=== PATIENT | female | born 1945 | race Caucasian/White ===

== ENCOUNTER 2017-03-14 17:54 | Emergency (ER) | payer MEDICARE ==
--- NOTE | 2017-03-14 18:15 | Emergency Department Record ---
History of Present Illness - General Source: Patient, Family Mode of Arrival: Wheelchair Limitations: No limitations - History of Present Illness Initial Comments: 71 yo female presents after a fall down 3 steps about 2 hours ago. She presents with pain in the ribs and side on the right. She did not hit her head. No neck pain. No extremity injury. Her pain is along the right side on the ribs to the right flank. No lacerations or abrasions. No pain of the spine. No hip or lower extremity pain. MD Complaint: Fall Onset/Timin -: Hour(s) Fall From: Down stairs (#) When Fall Occurred: 1-3 hours [employer] Fall Witnessed: No Place Fall Occurred: Home Loss of Consciousness: None Prolonged Down Time?: No Symptoms Prior to Fall: None Severity scale (1-10): 10 Quality: Aching, Burning, Sharp, Stabbing Context: Tripped/slipped Associated Symptoms: Denies - [place] Coma Scale Eye Response: (4) Open spontaneously <ORAL CARY - Last Filed: 03/14/17 18:53> <ELENA MONROE - Last Filed: 03/14/17 20:28> - General Chief Complaint: Fall Injury Stated Complaint: FALL Time Seen by Provider: 03/14/17 18:09 - Related Data Home Medications Medication Instructions Recorded Confirmed Last Taken Multivitamin [Multi-Vitamin Daily] 1 each PO DAILY 02/01/15 03/14/17 09/11/15 Previous Rx's Medication Instructions Recorded Diazepam [Valium] 5 mg PO Q8H #20 tab 03/14/17 Hydrocodone/Acetaminophen [[place] 1 each PO Q8HR #20 tablet 03/14/17 5-325 Tablet] Allergies Allergy/AdvReac Type Severity Reaction Status Date / Time cephalexin monohydrate Allergy Intermediate stomach Unverified 11/04/16 15:08 [From Keflex] issues prochlorperazine edisylate Allergy Intermediate HYPERSENSIT Unverified 07/29/16 11:23 [From Compazine] IVITY prochlorperazine maleate Allergy Intermediate HYPERSENSIT Unverified 07/29/16 11 :23 [From Compazine] IVITY zonisamide Allergy Intermediate HIVES Unverified 03/11/17 13:42 Travel Screening - Travel/Exposure Within Last 30 Days Have you traveled within the last 30 days?: No <ORAL CARY - Last Filed: 03/14/17 18:53> Review of Systems Constitutional: Denies: Chills, Fever, Malaise, Weakness Eyes: Denies: Eye discharge ENT: Denies: Congestion, Throat pain Respiratory: Denies: Cough Cardiovascular: Denies: Chest pain, Palpitations, Syncope Endocrine: Denies: Fatigue Gastrointestinal: Denies: Abdominal pain, Diarrhea, Nausea, Vomiting Genitourinary: Denies: Dysuria, Urgency Musculoskeletal: Denies: Arthralgia, Back pain, Joint swelling, Myalgia Skin: Denies: Bruising, Change in color, Rash Neurological: Denies: Headache, Numbness, Weakness Psychiatric: Denies: Anxiety Hematological/Lymphatic: Denies: Blood Clots, Easy bleeding, Easy bruising, Swollen glands <ORAL CARY - Last Filed: 03/14/17 18:53> Past Medical History - SOCIAL HISTORY Smoking Status: Never smoker Alcohol Use: None Drug Use: None - RESPIRATORY Hx Respiratory Disorders: No - CARDIOVASCULAR Hx Cardio Disorders: Yes Hx Hypertension: Yes - NEURO Hx Neuro Disorders: Yes Hx Dizziness: Yes (migraines) - GI Hx GI Disorders: No Hx Abdominal Pain: Yes - Hx Genitourinary Disorders: No - ENDOCRINE Hx Endocrine Disorders: No - MUSCULOSKELETAL Hx Musculoskeletal Disorders: Yes - PSYCH Hx Psych Problems: Yes Hx Anxiety: Yes - HEMATOLOGY/ONCOLOGY Hx Hematology/Oncology Disorders: No <ORAL CARY - Last Filed: 03/14/17 18:53> Family Medical History Any Significant Family History?: Yes Hx Cancer: Father, Mother Hx Heart Disease: Grandparents <ORAL CARY - Last Filed: 03/14/17 18:53> Physical Exam - General General Appearance: Alert, Oriented x3, Cooperative, No acute distress Limitations: No limitations - Head Head exam: Atraumatic, Normocephalic, Normal inspection - Eye Eye exam: Normal appearance, PERRL. negative: Conjunctival injection, Periorbital swelling - ENT ENT exam: Normal exam, Mucous membranes moist Ear exam: Normal external inspection Nasal Exam: Normal inspection Mouth exam: Normal external inspection Teeth exam: Normal inspection Throat exam: Normal inspection - Neck Neck exam: Normal inspection, Full ROM. negative: Tenderness - Respiratory Respiratory exam: Normal lung sounds bilaterally. negative: Respiratory distress, Rhonchi, Stridor, Wheezes - Cardiovascular Cardiovascular Exam: Regular rate, Normal rhythm, Normal heart sounds - GI/Abdominal GI/Abdominal exam: Soft. negative: Guarding, Tenderness - Rectal Rectal exam: Deferred - exam: Deferred - Extremities Extremities exam: Normal inspection, Normal capillary refill, Tenderness. negative: Calf tenderness, Full ROM, Pedal edema Image of Full Body: 1 - tender mid lateral chest wall to lower right flank, normal inspection 2 - tender - Back Back exam: Reports: CVA tenderness (R) (tender along the right CVA area). Denies: Full ROM, Paraspinal tenderness, Tenderness, Vertebral tenderness - Neurological Neurological exam: Alert, Normal gait, Oriented X3, Reflexes normal - Psychiatric Psychiatric exam: Normal affect, Normal mood. negative: Agitated, Anxious - Skin Skin exam: Dry, Intact, Normal color, Warm <ORAL CARY - Last Filed: 03/14/17 18:53> Course Vital Signs 03/14/17 17:57 Temperature 98.6 F Pulse Rate 70 Respiratory 20 Rate Blood Pressure 152/98 Pulse Ox 97 - Reevaluation(s) Reevaluation #1: No acute changes on the CBC 03/14/17 18:44 Reevaluation #2: The case was signed out to Dr Monroe for review of the CT scans and to re- assess the patient 03/14/17 19:00 03/14/17 <ORAL CARY - Last Filed: 03/14/17 18:53> Vital Signs 03/14/17 17:57 Temperature 98.6 F Pulse Rate 70 Respiratory 20 Rate Blood Pressure 152/98 Pulse Ox 97 - Reevaluation(s) Reevaluation #3: 03/14/17 19:10 Assumed care at shift change. Patient requesting pain medication for her right sided pain prior to going to CT scan. Reevaluation #4: Repeat exam shows nontender abdomen, pelvis, and hips. lungs clear. 03/14/17 20:28 <ELENA MONROE - Last Filed: 03/14/17 20:28> Medical Decision Making - Lab Data Result diagrams: 03/14/17 18:20 03/14/17 18:20 <ORAL CARY - Last Filed: 03/14/17 18:53> - Management Options MDM Management: No Additional Work-up Planned - Data Complexity MDM Data: Labs Ordered and/or Reviewed, X-Ray Ordered and/or Reviewed (Chest CT with contrast: Nondisplaced fracture right 8th rib with no other acute abnormalities.Per radiologist.) - Lab Data Result diagrams: 03/14/17 18:20 03/14/17 18:20 Lab Results 03/14/17 03/14/17 03/14/17 Range/Units 18:20 18:20 18:20 WBC 9.9 (4.2-12.2) K/uL RBC 4.16 (3.80-5.40) M/uL Hgb 12.9 (11.6-16.0) gm/dl Hct 38.8 (35.0-47.0) % MCV 93.3 (81-97) fl MCH 31.0 (27-33) pg MCHC 33.2 (32-36) g/dl RDW 12.7 (11.5-14.5) % Plt Count 216 (130-400) K/uL MPV 10.9 H (7.4-10.4) fl Gran % 72.0 (47-80) % Lymphocytes % 18.7 (16-45) % Monocytes % 7.8 (0-9) % Eosinophils % 1.0 (0-6) % Basophils % 0.5 (0-6) % PT 9.9 (9.5-12.1) SECONDS INR 0.88 APTT 24.00 L (24.5-39.1) SECONDS Sodium 141 (136-145) mmol/L Potassium 3.9 (3.5-5.1) mmol/L Chloride 101 (98-107) mmol/L Carbon Dioxide 27.6 (22-30) mmol/L Anion Gap 12.4 (7-16) BUN 21 H (7-17) mg/dL Creatinine 0.8 (0.52-1.04) mg/dL Estimated GFR > 60 ml/min Random Glucose 97 (70-110) mg/dL Calcium 9.3 (8.5-10.1) mg/dL Total Bilirubin 0.79 (0.2-1.3) mg/dL AST 24 (14-36) U/L ALT 24 (9-52) U/L Alkaline Phosphatase 91 (38-126) U/L Total Protein 7.8 (6.3-8.2) gm/dL Albumin 4.7 (3.5-5.0) gm/dL Globulin 3.1 (1.4-4.8) gm/dL Albumin/Globulin Ratio 1.5 (1.1-1.8) <ELENA MONROE - Last Filed: 03/14/17 20:28> Disposition <ORAL CARY - Last Filed: 03/14/17 18:53> Disposition: Discharge <ELENA MONROE - Last Filed: 03/14/17 20:28> Clinical Impression: Multiple contusions of trunk Qualifiers: Encounter type: initial encounter Qualified Code(s): S20.20XA - Contusion of thorax, unspecified, initial encounter Right rib fracture Qualifiers: Encounter type: initial encounter Rib fracture type: single rib Fracture type: closed Qualified Code(s): S22.31XA - Fracture of one rib, right side, initial encounter for closed fracture Disposition: Home, Self-Care Condition: (1) Good Instructions: Fall Prevention for Older Adults (ED), Rib Fracture (ED) Additional Instructions: Cough and deep breath 4 times daily while splinting rib area with pillow for support. No lifting, bending, twisting for 2 weeks. [place] as directed as needed for significant pain. Do NOT take norco with tylenol as tylenol is in norco. valium as directed as needed for muscle spasm. Ibuprofen or tylenol as directed as needed for mild to moderate pain. Follow up with PCP as needed for recheck of rib. Prescriptions: Hydrocodone/Acetaminophen [[place] 5-325 Tablet] 1 each PO Q8HR #20 tablet Diazepam [Valium] 5 mg PO Q8H #20 tab Forms: Patient Portal Access
[2017-03-14] MEDS ORDERED: ORPHENADRINE CITRATE 60MG/2ML VIAL IM ONE (18:16)
[2017-03-14] MEDS ORDERED: HYDROMORPHONE HCL 1 MG/ML CPJ IVP ONE ×3 (18:16→20:19)
[2017-03-14] MEDS ORDERED: 0.9 % SODIUM CHLORIDE 1,000 ML BAG IV ONE (18:16)
[2017-03-14 18:30] LABS: BASO % 0.5 % (0-6); HEMATOCRIT 38.8 % (35.0-47.0); HEMOGLOBIN 12.9 gm/dl (11.6-16.0); LYMPH % 18.7 % (16-45); MEAN CELL VOLUME 93.3 fl (81-97); MEAN CORPUSCULAR HGB CONC 33.2 g/dl (32-36); MEAN PLATELET VOLUME 10.9 fl (7.4-10.4); MONO % 7.8 % (0-9); PLATELET COUNT 216 K/uL (130-400); RED BLOOD COUNT 4.16 M/uL (3.80-5.40); RED CELL DISTRIBUTION WIDTH 12.7 % (11.5-14.5); WHITE BLOOD COUNT W/O DIFF 9.9 K/uL (4.2-12.2)
[2017-03-14 18:40] LABS: ALB/GLOB RATIO 1.5 (1.1-1.8); ALBUMIN 4.7 gm/dL (3.5-5.0); ALKALINE PHOSPHATASE 91 U/L (38-126); ALT/SGPT 24 U/L (9-52); ANION GAP 12.4 (7-16); AST/SGOT 24 U/L (14-36); BILIRUBIN,TOTAL 0.79 mg/dL (0.2-1.3); BLOOD UREA NITROGEN 21 mg/dL (7-17); CARBON DIOXIDE 27.6 mmol/L (22-30); CREATININE 0.8 mg/dL (0.52-1.04); EST GLOMERULAR FILTRATION RATE > 60 ml/min; GLUCOSE,RANDOM 97 mg/dL (70-110); TOTAL PROTEIN 7.8 gm/dL (6.3-8.2)
[2017-03-14 18:41] LABS: INR 0.88; PROTHROMBIN TIME (PATIENT) 9.9 SECONDS (9.5-12.1)
[2017-03-14] MEDS ORDERED: DIAZEPAM 5 MG TABLET PO ONE (20:20)
[2017-03-14] MEDS ORDERED: HYDROCODONE/APAP 5/325MG TABLET PO ONE (20:20)
--- NOTE | 2017-03-15 10:05 | CT SCAN REPORT ---
DATE: 03/14/2017 at 7:23 p.m. EXAM: CHEST CT SCAN WITH CONTRAST. HISTORY: The patient fell with right-sided chest pain. Fell down three steps two hours ago. TECHNIQUE: Axial CT scan of the chest performed following the intravenous administration of 100 mL of Omnipaque 300 as the intravenous contrast. COMPARISON: No prior chest CT. Comparison is made to the most recent chest x- ray dated 11/04/2016. FINDINGS: No pleural or pericardial effusion evident. Small hiatal hernia. No hilar or mediastinal adenopathy seen. No pneumothorax evident. No acute infiltrate evident. Prominent spurring in the spine. Mild anterior wedging of T12 appears unchanged from the prior lateral chest x-ray of 11/04/2016. There does appear to be an undisplaced fracture laterally in the right eighth rib. IMPRESSION: 1. NO ACUTE INFILTRATE OR PNEUMOTHORAX EVIDENT. 2. ESSENTIALLY UNDISPLACED FRACTURE LATERALLY OF THE RIGHT EIGHTH RIB. 3. PROMINENT SPURRING IN THE THORACIC SPINE. 4. SMALL HIATAL HERNIA. JOB NUMBER: [id number] [facility]
--- NOTE | 2017-03-15 10:17 | CT SCAN REPORT ---
DATE: 03/14/2017. EXAM: CT SCAN OF THE ABDOMEN AND PELVIS. HISTORY: The patient fell with right-sided pain. TECHNIQUE: Axial CT scan of the abdomen and pelvis was obtained following the intravenously contrast-enhanced CT utilizing a dose of 100 mL of Omnipaque 300 as the intravenous contrast as reported on the chest CT. Oral contrast was utilized for the abdomen CT as well. COMPARISON: No prior CT of the abdomen and pelvis with which to compare. FINDINGS: Apparent undisplaced fracture laterally of the right eighth rib as noted on the chest CT today. No basilar pneumothorax evident. Small calcification in the dependent portion of the gallbladder consistent with cholelithiasis. No additional findings to suggest acute cholecystitis. Small periumbilical anterior abdominal wall hernia containing adipose tissue but no bowel. No definite hepatic, splenic, adrenal, pancreatic, or left renal mass identified. There are a couple of tiny low-attenuation foci in the right kidney too small to accurately characterize but likely representing a couple of tiny renal cysts. There may be a very tiny angiomyolipoma in the upper pole of the right kidney as well. The uterus is not identified and is presumably surgically absent. There may be a right ovarian cyst posteriorly in the right side of the pelvis about 2.5 cm in size. The appendix is visualized and appears negative with no appendicitis evident. No free intraperitoneal air or free intraperitoneal fluid evident. Degenerative disc disease at multiple levels in the lumbar spine. Mild lumbar curve convex to the right. IMPRESSION: 1. ESSENTIALLY UNDISPLACED FRACTURE LATERALLY OF THE RIGHT EIGHTH RIB. 2. APPARENT CHOLELITHIASIS. 3. 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 4. POSTOPERATIVE HYSTERECTOMY. 5. PROBABLE 2.5 CM RIGHT ADNEXAL CYST. 6. A COUPLE OF TINY LOW-ATTENUATION FOCI IN THE RIGHT KIDNEY ARE PROBABLY A COUPLE OF TINY RENAL CYSTS. [facility]BER: [id number] [facility]
== END 2017-03-14 21:06 | disposition home or self-care (01) ==
LOC: ER 17:54
DX: S22.31XA Fracture of one rib, right side, initial encounter for closed fracture (principal); S20.20XA Contusion of thorax, unspecified, initial encounter; W10.9XXA Fall (on) (from) unspecified stairs and steps, initial encounter; Y92.009 Unspecified place in unspecified non-institutional (private) residence as the place of occurrence of the external cause
CPT/HCPCS: 99284 ×2; 96376; 96374; 96372; 85025; 85730; 85610; 80053; 71260; 74177; Q9967; J3490; J1170; J2360; J7030